=== PATIENT | male | born 1960 | race Caucasian/White ===

== ENCOUNTER → 2016-06-28 | Outpatient (CLI) | payer OTHER, BC ==
--- NOTE | 2016-06-28 15:38 | RAD ---
EXAM: Left ankle, 3 views. HISTORY: Pain. COMPARISON: None. FINDINGS: , Lateral and mortise views of the left ankle are obtained. There is a tiny ossific density inferior to the medial malleolus, likely the sequela of remote injury. There is no acute fracture, dislocation or subluxation. There is a small plantar spur. There is enthesopathy at the Achilles tendon insertion. There is soft tissue swelling. IMPRESSION: 1. No acute osseous finding. 2. Left ankle soft tissue swelling.
== END | disposition home or self-care (01) ==
LOC: DXRADRC 14:56
PROVIDERS: ATTEND Family Medicine
DX: M25.572 Pain in left ankle and joints of left foot (principal); M25.472 Effusion, left ankle; M77.8 Other enthesopathies, not elsewhere classified
CPT/HCPCS: 73610

== ENCOUNTER → 2017-07-18 | Outpatient (CLI) | payer OTHER ==
--- NOTE | 2017-07-18 14:01 | RAD ---
3 views right knee 07/18/2017 Clinical indication: Right knee osteoarthritis. Comparison: Radiograph 03/04/2014. Findings: No acute fracture or traumatic malalignment. Tricompartment degenerative changes, to a severe degree in the medial compartment with joint space narrowing and prominent osteophytosis. Severe patellofemoral arthrosis with large osteophytosis. Mild lateral joint space narrowing and osteophytosis. Small suprapatellar knee joint effusion. Impression: 1. Tricompartment degenerative changes, to severe degree, medial and patellofemoral articulations. 2. No acute osseous abnormality. 3. Small suprapatellar knee joint effusion.
== END | disposition home or self-care (01) ==
LOC: PMG 11:39
PROVIDERS: ATTEND Physician Assistant Medical
DX: M17.11 Unilateral primary osteoarthritis, right knee (principal)
CPT/HCPCS: 73562